=== PATIENT | female | born 1950 | race Caucasian/White ===

== ENCOUNTER 2018-04-25 11:38 | Day surgery (SDC) | payer BC ==
[~2018-04-25 11:38] MED LIST: ACETAMINOPHEN 1,000 MG/100 ML BTL IV ONE; CLINDAMYCIN PHOS/D5W 900MG 900 MG/50 ML BAG IVPB ONE
[2018-04-25] MEDS ORDERED: MIDAZOLAM HCL 2MG/2ML VIAL IV ONE (11:39)
[2018-04-25] MEDS ORDERED: PROPOFOL 10 MG/ML VIAL IV ONE (11:39)
[2018-04-25] MEDS ORDERED: ONDANSETRON HCL IV 4 MG/2 ML VIAL IVP ONE (11:39)
[2018-04-25] MEDS ORDERED: METHYLPREDNISOLONE 40MG/VIAL IM ONE (11:39)
[2018-04-25] MEDS ORDERED: FENTANYL PF 100MCG/2ML VIAL IV ONE (11:39)
[2018-04-25] MEDS ORDERED: LIDOCAINE 2% MDV (20MG/ML) 20ML VIAL IV ONE (11:39)
[2018-04-25] MEDS ORDERED: BUPIVACAINE 0.5% W/EPI MPF 30 ML VIAL IVP ONE (11:39)
[2018-04-25] MEDS ORDERED: SEVOFLURANE 250 ML INH ONE (11:39)
[2018-04-25 12:29] LABS: GRAN % 52.8 % (47-80); HEMOGLOBIN 14.2 gm/dl (11.6-16.0); LYMPH % 36.7 % (16-45); MEAN CELL VOLUME 92.6 fl (81-97); MEAN CORPUSCULAR HEMOGLOBIN 32.1 pg (27-33); MEAN CORPUSCULAR HGB CONC 34.6 g/dl (32-36); MEAN PLATELET VOLUME 11.3 fl (7.4-10.4); MONO % 7.5 % (0-9); PLATELET COUNT 185 K/uL (130-400); RED BLOOD COUNT 4.43 M/uL (3.80-5.40); RED CELL DISTRIBUTION WIDTH 12.7 % (11.5-14.5); WHITE BLOOD COUNT W/O DIFF 4.9 K/uL (4.2-12.2)
[2018-04-25 12:47] LABS: BLOOD UREA NITROGEN 7 mg/dL (8-23); CREATININE 0.7 mg/dL (0.5-0.9); EST GLOMERULAR FILTRATION RATE > 60 mL/min; GLUCOSE,RANDOM 91 mg/dL (74-109)
[2018-04-25] MEDS ORDERED: MORPHINE SULFATE 4 MG/ML VIAL ONE (14:52)
--- NOTE | 2018-04-26 10:40 | Operative Note ---
DATE OF SURGERY: 04/25/2018 Surgeon: Shen Parnell MD PREOPERATIVE DIAGNOSIS: Internal derangement of left knee. POSTOPERATIVE DIAGNOSIS: Complex tear involving the posterior horn of the medial meniscus. OPERATION: Left knee arthroscopy with partial medial meniscectomy. Anesthesia: General. PREPARATION: Chloraprep. INDIVIDUAL CONSIDERATIONS: None. PROCEDURE: The patient was taken to the operating room and placed supine on the operating room table. She had a successful induction with general anesthetic. Her left lower extremity was prepped and draped in the usual fashion. The patient had a superior lateral inflow cannula placed. The skin was infiltrated with 0.5% Marcaine with epinephrine prior. The knee was then inflated with normal saline. An inferior medial and an inferior lateral portal were made in a similar fashion. The arthroscope was introduced through the inferior lateral portal up into the pouch. The patellofemoral compartment was normal. No loose bodies were seen in the pouch of either gutter. Medially, she had an obvious complex degenerative tear involving the posterior horn of the medial meniscus, basically most of it was debrided out with basket forceps and the shaver. I was able to retain the medial and anterior horns. Articular cartilage were intact in the notch. The cruciates were normal. The lateral compartment structures were well seen and probed and found to be normal. The knee was then irrigated out with saline to remove loose floating debris. The portals were closed with larissa. 20 mL of 0.25% Marcaine with epinephrine, along with 40 mg of Depo-Medrol and 4 mg of morphine were injected into the knee and a sterile bulky compressive dressing was applied. The patient tolerated the procedure well. The needle and sponge counts were correct. Estimated blood loss was minimal. She was taken back to recovery in good condition. There were no complications. JEFF
== END 2018-04-25 16:25 | disposition home or self-care (01) ==
LOC: SUR 11:38
PROVIDERS: ATTEND Orthopaedic Surgery
DX: S83.232A Complex tear of medial meniscus, current injury, left knee, initial encounter (principal); I10 Essential (primary) hypertension; E11.9 Type 2 diabetes mellitus without complications; E78.00 Pure hypercholesterolemia, unspecified; Z79.4 Long term (current) use of insulin; Z95.811 Presence of heart assist device
CPT/HCPCS: 80048; 85025; 93005; J1030; J2270; J2405; J3490